=== PATIENT | male | born 1980 | race African-American/Black ===

== ENCOUNTER 2018-04-16 00:40 | Emergency (ER) | payer SELFPAY ==
[2018-04-16] VITALS (19 sets, daily range): BP systolic 91–148; BP diastolic 55–105; PULSE 79–135; RESP 11–27; TEMP 37.3; O2SAT 97–100; BMI 22.9
[2018-04-16 01:35] LABS: Add Manual Diff / Slide Review NO; Basophils Percent Auto 0.4 % (0-2); Eosinophils Percent Auto 1.1 % (2-4); Hematocrit 53.5 % (41-53); Hemoglobin 18.3 g/dL (13.5-17.5); Lymphocytes Percent Auto 16.4 % (25-40); Mean Corpuscular HGB Conc 34.2 % (30-36); Mean Corpuscular Hemoglobin 26.8 PG (26-34); Mean Corpuscular Volume 78.6 fL (80-100); Monocytes Percent Auto 6.6 % (3-14); Neutrophils Absolute Auto 11900 /uL (3000-5900); Neutrophils Percent Auto 75.5 % (50-75); Platelet Count 125 X10^3/uL (150-400); Red Cell Distribution Width 15.1 % (11.6-14.8); White Blood Cell Count 15.7 X10^3/uL (4.5-11.0)
[2018-04-16 01:36] LABS: Lactate (Lactic Acid) 0.9 mmol/L (0.7-2.1)
[2018-04-16] MEDS: SODIUM CHLORIDE 0.9% 1,000 ML 1000 ML IV (01:36)
--- NOTE | 2018-04-16 01:36 | ED.SKABFB ---
HPI - Skin/Abscess/Foreign Bdy General Chief complaint: Skin/Abscess/Foreign Body Stated complaint: swelling, pain inside buttocks Time Seen by Provider: 04/16/18 00:47 Source: patient and family Mode of arrival: ambulatory Limitations: no limitations History of Present Illness HPI narrative: Patient presents to the emergency department this evening with a significant other in the chief complaint of a painful abscess on his left buttock. He states it started few weeks ago and had spontaneously drained, he went to [facility] and had an IV with labs and a CT scan proving was not a perirectal abscess. He complains of pain upon sitting but denies any pain with bowel movements. He has had no fever or chills nor nausea or vomiting MD complaint: abscess/boil Onset (ago): week(s) Tetanus up to date: yes Location: buttocks Severity: moderate Quality: burning and aching Related Data Previous Rx's Medication Instructions Recorded hydrocodone-acetaminophen 1 tab PO Q4-6H PRN #14 tab 04/16/18 sulfamethoxazole-trimethoprim 1 tab PO BID 10 Days #20 tab 04/16/18 [Bactrim DS] Allergies Allergy/AdvReac Type Severity Reaction Status Date / Time Penicillins [PENICILLINS] Allergy Unknown Unverified 12/06/17 12:33 Review of Systems Review of Systems All systems reviewed & are unremarkable except as noted in HPI and below Constitutional Denies chills, Denies fever(s), Denies lethargy and Denies weakness Eyes Denies change in vision, Denies eye discharge, Denies irritation and Denies loss of vision ENT Ears, Nose, Mouth, and Throat: Denies change in voice, Denies neck pain and Denies sore throat Cardiovascular Denies chest pain, Denies irregular heart rhythm, Denies lightheadedness, Denies palpitations, Denies dyspnea, Denies dyspnea on exertion and Denies orthopnea Respiratory Denies cough, Denies dyspnea, Denies dyspnea on exertion and Denies wheezing Gastrointestinal Gastrointestinal: Denies abdominal pain, Denies change in bowel habits, Denies diarrhea, Denies nausea and Denies vomiting Genitourinary Denies hematuria, Denies flank pain, Denies urinary incontinence and Denies urinary urgency Musculoskeletal Denies neck pain Integumentary/Breasts Denies pruritus, Reports erythema, Denies rash, Reports skin pain and Reports skin swelling Neurologic Denies confusion, Denies loss of vision and Denies weakness Psychiatric Denies anxiety, Denies confusion, Denies depression, Denies homicidal ideation and Denies suicidal ideation Endocrine Denies palpitations Hematologic/Lymphatic Denies easy bruising Allergic/Immunologic Denies wheezing [facility], [facility] Social History Smoking Status: Current every day smoker Exam Initial Vital Signs Initial Vital Signs: Vital Signs Temperature 99.2 F 04/16/18 01:01 Pulse Rate 110 H 04/16/18 01:01 Respiratory Rate 16 04/16/18 01:01 Blood Pressure 120/75 04/16/18 01:01 Pulse Oximetry 97 04/16/18 01:01 Const General: cooperative and well developed Nutritional Appearance: well nourished Orientation: alert, awake, oriented x3 and not confused HENMT Head: normocephalic and atraumatic Ears: external ears normal and TM's normal bilaterally Nose: external nose normal and No nasal discharge Face and sinus: sinuses nontender, face symmetric, no sinus tenderness and No dry mucous membranes Mouth: oral mucosae normal and moist mucous membranes Teeth and gingiva: dentition normal Throat: tonsils normal and uvula midline Eyes General: appearance normal, both eyes and all related structures Eyelids: eyelids normal Conjunctivae: conjunctivae normal Sclera: sclerae normal Pupils: PERRL EOM: EOM intact bilaterally Neck Neck: normal visual inspection, trachea midline, No lymphadenopathy, No midline deformity and No JVD Lymphatic: No lymphedema Chest Chest: normal inspection of the chest Resp Effort & Inspection: normal respiratory effort, able to speak in complete sentences, no respiratory distress and no use of accessory muscles Auscultation: clear to auscultation bilaterally, no rales, no rhonchi and no wheezes Cardio Rate: regular rate Rhythm: regular rhythm Heart Sounds: no click, no gallops, no murmurs and no rubs Pulses: normal peripheral pulses GI Inspection: non-distended Palpation: soft, no hepatosplenomegaly, No guarding, No pulsatile mass and No tender Auscultation: normal bowel sounds Back/Spine/Pelvis Back: No CVA tenderness Cervical Spine: cervical ROM normal and No pain with cervical ROM Thoracic/Lumbar Spine: thoracic and lumbar spine normal to inspection Skin General: no rashes or lesions noted, fluctuance (3cm fluctuance L buttock. No perirectal), No jaundice, No petechiae and warm Neuro General: alert, oriented x3, gait normal and no focal motor deficits Speech: speech normal Extrem General: full ROM, no clubbing, cyanosis or edema, no pedal edema and no calf tenderness Psych Appearance: well kempt Mental Status: mental status grossly normal Attitude: cooperative Thought Content: normal and suicidality Judgment: judgment good Procedures Abscess I/D Site: other (buttock) Side (if applicable): left Technique: incised with #11 blade Amount of fluid expressed (mL): 15 Irrigation: No Packing used?: iodoform Procedural Sedation Patient Age: Patient is 5yrs or older Indication: incision and drainage of abscess ASA Class: I Mallampati Airway Classification: Class I Preparation: laboratory monitor applied, capnometry used, supplemental O2 applied, suction/airway equipment at bedside and IV secured Ketamine: IV Ketamine dose (mg): 105 ED Sedation Level: Moderate (Concious) Patient Tolerated Procedure: Well Complications: none Course Orders Ordered: ED Orders 04/16/18 01:15 Basic Metabolic Panel Stat Blood Culture Stat Complete Blood Count AUTO DIFF Stat Lactate (Lactic Acid) Stat Procalcitonin Stat 04/16/18 02:00 Wound Culture and Gram Stain Stat Discontinued Medications Hydrocodone Bitart/Acetaminophen (Vicodin Prepack) 1 bottle MISC SEEINSTR ONE Stop: 04/16/18 02:21 Last Admin: 04/16/18 02:35 Dose: 1 bottle Sodium Chloride (Normal Saline 0.9%) 1,000 mls @ 1,000 mls/hr IV BOLUS ONE Stop: 04/16/18 02:23 Last Admin: 04/16/18 01:36 Dose: 1,000 mls/hr Ketamine HCl (Ketalar) 105 mg IV NOW ONE Stop: 04/16/18 02:16 Last Admin: 04/16/18 02:03 Dose: 105 mg Trimethoprim/Sulfamethoxazole (Bactrim Ds Prepack) 1 bottle MISC SEEINSTR ONE Stop: 04/16/18 02:21 Last Admin: 04/16/18 02:35 Dose: 1 bottle Vital Signs - 8 hr 04/16/18 01:01 04/16/18 01:44 04/16/18 01:55 Temperature 99.2 F Pulse Rate 110 H 79 79 Respiratory Rate 16 14 11 L Blood Pressure 120/75 Blood Pressure [Right Arm] 105/75 91/55 L Pulse Oximetry 97 98 100 04/16/18 01:57 04/16/18 02:00 04/16/18 02:02 Temperature Pulse Rate 85 89 100 H Respiratory Rate 15 16 20 Blood Pressure Blood Pressure [Right Arm] 110/66 108/87 H Pulse Oximetry 99 99 98 04/16/18 02:04 04/16/18 02:06 04/16/18 02:08 Temperature Pulse Rate 109 H 121 H 128 H Respiratory Rate 27 H 20 26 H Blood Pressure Blood Pressure [Right Arm] 146/80 H 128/84 H 145/80 H Pulse Oximetry 98 97 97 04/16/18 02:10 04/16/18 02:12 04/16/18 02:14 Temperature Pulse Rate 135 H 135 H 99 H Respiratory Rate 24 24 23 Blood Pressure Blood Pressure [Right Arm] 145/94 H 139/105 H 148/105 H Pulse Oximetry 99 98 98 04/16/18 02:16 04/16/18 02:20 04/16/18 02:25 Temperature Pulse Rate 99 H 91 H 89 Respiratory Rate 18 13 15 Blood Pressure Blood Pressure [Right Arm] 132/97 H 130/92 H 129/86 H Pulse Oximetry 100 98 98 04/16/18 02:30 04/16/18 02:35 04/16/18 02:44 Temperature Pulse Rate 89 85 81 Respiratory Rate 13 16 14 Blood Pressure Blood Pressure [Right Arm] 126/82 H Pulse Oximetry 97 98 04/16/18 02:50 Temperature Pulse Rate 82 Respiratory Rate 18 Blood Pressure Blood Pressure [Right Arm] 111/72 Pulse Oximetry 98 MDM - Skin/Abscess/Foreign Bdy Lab Data Result diagrams: 04/16/18 01:15 04/16/18 01:15 Lab Results 04/16/18 04/16/18 04/16/18 Range/Units 01:15 01:15 01:15 WBC 15.7 H (4.5-11.0) X10^3/uL RBC 6.80 H (4.5-5.9) X10^6/uL Hgb 18.3 H (13.5-17.5) g/dL Hct 53.5 H (41-53) % MCV 78.6 L (80-100) fL MCH 26.8 (26-34) PG MCHC 34.2 (30-36) % RDW 15.1 H (11.6-14.8) % Plt Count 125 L (150-400) X10^3/uL Neut % (Auto) 75.5 H (50-75) % Lymph % (Auto) 16.4 L (25-40) % [place] % (Auto) 6.6 (3-14) % Eos % (Auto) 1.1 L (2-4) % Baso % (Auto) 0.4 (0-2) % Neut # (Auto) 63688 H (8543-0506) /uL Sodium (137-145) mmol/L Potassium (3.4-5.1) mmol/L Chloride (98-107) mmol/L Carbon Dioxide (22-32) mmol/L BUN (9-20) mg/dL Creatinine (0.66-1.25) mg/dL Estimated GFR (>60) mL/min BUN/Creatinine Ratio (6-22) Glucose (70-100) mg/dL Lactate 0.9 (0.7-2.1) mmol/L Calcium (8.4-10.2) mg/dL Procalcitonin < 0.05 (<0.5) ng/mL 04/16/18 Range/Units 01:15 WBC (4.5-11.0) X10^3/uL RBC (4.5-5.9) X10^6/uL Hgb (13.5-17.5) g/dL Hct (41-53) % MCV (80-100) fL MCH (26-34) PG MCHC (30-36) % RDW (11.6-14.8) % Plt Count (150-400) X10^3/uL Neut % (Auto) (50-75) % Lymph % (Auto) (25-40) % [place] % (Auto) (3-14) % Eos % (Auto) (2-4) % Baso % (Auto) (0-2) % Neut # (Auto) (8753-2325) /uL Sodium 141 (137-145) mmol/L Potassium 4.6 (3.4-5.1) mmol/L Chloride 101 (98-107) mmol/L Carbon Dioxide 30 (22-32) mmol/L BUN 15 (9-20) mg/dL Creatinine 1.00 (0.66-1.25) mg/dL Estimated GFR > 60.0 (>60) mL/min BUN/Creatinine Ratio 15.0 (6-22) Glucose 102 H (70-100) mg/dL Lactate (0.7-2.1) mmol/L Calcium 9.9 (8.4-10.2) mg/dL Procalcitonin (<0.5) ng/mL Discharge Plan Departure Patient Disposition: Home Clinical Impression: Abscess of skin or subcutaneous tissue Instructions: Incision and Drainage of a Skin Abscess Activity Restrictions/Additional Instructions: *You have been diagnosed with [ cutaneous abscess ] *What to do: *Take medications as directed *Follow up with your primary care provider in 2-3 days, call for an appointment. Let them know you were seen in the Emergency Department and that we ask that you be seen in follow up *Return to ER if you should have any new, worsening or concerning symptoms, such as [increasing pain, difficulty with bowel movement, fever over 101F, or other bothersome symptoms] Prescriptions: New hydrocodone-acetaminophen 5-325 mg tablet 1 tab PO Q4-6H PRN (Reason: pain) Qty: 14 RF: 0 sulfamethoxazole-trimethoprim [Bactrim DS] 800-160 mg tablet 1 tab PO BID 10 Days Qty: 20 RF: 0 Referrals: Matthew Thomas MD [Physician] -
[2018-04-16 01:48] LABS: Blood Urea Nitrogen 15 mg/dL (9-20); Calcium 9.9 mg/dL (8.4-10.2); Carbon Dioxide 30 mmol/L (22-32); Chloride 101 mmol/L (98-107); Estimated Glomerular Filt Rate > 60.0 mL/min (>60); Glucose 102 mg/dL (70-100); Potassium 4.6 mmol/L (3.4-5.1); Sodium 141 mmol/L (137-145)
[2018-04-16 01:51] LABS: HEMOLYSIS 67 (0-50)
[2018-04-16 01:57] LABS: Procalcitonin < 0.05 ng/mL (<0.5)
[2018-04-16] MEDS: KETAMINE 500 MG/5 ML INJ 105 MG IV (02:03)
[2018-04-16] MEDS: SULFA/TRIMETH 800/160 PREPACK 1 BOTTLE MISC (02:35)
[2018-04-16] MEDS: HYDROCODONE/ACET 5/325 PREPACK 1 BOTTLE MISC (02:35)
== END 2018-04-16 03:21 | disposition home or self-care (01) ==
PROVIDERS: Emergency Provider Emergency Medicine
DX: L02.31 Cutaneous abscess of buttock (principal)
CPT/HCPCS: 10060; 36591; 80048; 83605; 84145; 85025; 87040; 87070; 87075; 87077; 87147; 87186; 87205; 94770; 96360; 96361; 99152; 99285; 99291

== ENCOUNTER 2018-05-03 10:19 | Observation (INO) | payer SELFPAY ==
[2018-05-03] VITALS (13 sets, daily range): BP systolic 84–152; BP diastolic 46–106; PULSE 56–93; RESP 16–28; TEMP 36.2–37.3; O2SAT 95–100; BMI 20.7
--- NOTE | 2018-05-03 11:31 | PC.NURSE ---
Lump in area where pt had to have surgical I&D done. Reports is extremely painful
--- NOTE | 2018-05-03 12:03 | ED.WOUNDLAC ---
HPI - Wound/Laceration <LATIA Oshea - Last Filed: 05/03/18 20:44> General Chief Complaint: Wound/Laceration Stated Complaint: LUMP ON BUTT Time Seen by Provider: 05/03/18 11:47 Source: patient Mode of arrival: ambulatory Limitations: no limitations History of Present Illness HPI narrative: 37-year-old male with history of having abscess to his left buttocks over the past couple weeks and is a daily smoker here for complaint of return of abscess to the left buttocks area. He had incision and drainage completed 2 weeks ago and was placed on Septra. He was seen by surgery. He reports over the last 3-4 days he has had a repeat return of swelling and pain into that area. He denies any drainage from the area. No fevers no chills. He has completed his antibiotics. He denies any trauma to the area. No other concerns or complaints at this time. Related Data Home Medications Medication Instructions Recorded Confirmed ibuprofen 1 dose PO PRN PRN 05/03/18 05/03/18 Previous Rx's Medication Instructions Recorded ciprofloxacin HCl 750 mg PO BID #14 tab 05/04/18 metronidazole [Flagyl] 250 mg PO TID #21 tab 05/04/18 oxycodone-acetaminophen 1 tab PO Q4HR PRN #30 tab 05/04/18 Allergies Allergy/AdvReac Type Severity Reaction Status Date / Time Penicillins [PENICILLINS] Allergy Unknown Verified 05/03/18 10:23 Review of Systems <LATIA Oshea - Last Filed: 05/03/18 20:44> Constitutional Denies chills, Denies fever(s), Denies lethargy and Denies weakness Eyes Denies change in vision, Denies eye discharge, Denies irritation and Denies loss of vision ENT Ears, Nose, Mouth, and Throat: Denies change in voice, Denies neck pain and Denies sore throat Cardiovascular Denies chest pain, Denies irregular heart rhythm, Denies lightheadedness, Denies palpitations, Denies dyspnea, Denies dyspnea on exertion and Denies orthopnea Respiratory Denies cough, Denies dyspnea, Denies dyspnea on exertion and Denies wheezing Gastrointestinal Gastrointestinal: Denies abdominal pain, Denies change in bowel habits, Denies diarrhea, Denies nausea and Denies vomiting Genitourinary Denies hematuria, Denies flank pain, Denies urinary incontinence and Denies urinary urgency Musculoskeletal Denies neck pain Integumentary/Breasts Comments: Abscess to left buttocks Neurologic Denies confusion, Denies loss of vision and Denies weakness Psychiatric Denies anxiety, Denies confusion, Denies depression, Denies homicidal ideation and Denies suicidal ideation Endocrine Denies palpitations Allergic/Immunologic Denies wheezing Exam <LATIA Oshea - Last Filed: 05/03/18 20:44> Initial Vital Signs Initial Vital Signs: Vital Signs Temperature 98.2 F 05/03/18 10:23 Pulse Rate 93 H 05/03/18 10:23 Respiratory Rate 18 05/03/18 10:23 Blood Pressure 152/106 H 05/03/18 10:23 Pulse Oximetry 95 05/03/18 10:23 Const General: cooperative and well developed Nutritional Appearance: well nourished Orientation: alert, awake, oriented x3 and not confused HENMT Mouth: oral mucosae normal and moist mucous membranes Eyes Conjunctivae: conjunctivae normal Sclera: sclerae normal Pupils: PERRL EOM: EOM intact bilaterally Resp Effort & Inspection: normal respiratory effort, able to speak in complete sentences, no respiratory distress and no use of accessory muscles Auscultation: clear to auscultation bilaterally, no rales, no rhonchi and no wheezes Cardio Rate: regular rate Rhythm: regular rhythm Heart Sounds: no click, no gallops, no murmurs and no rubs Skin Other: Tenderness and swelling with induration to the of left medial buttocks distal CMS is intact <Rosa Grey DO - Last Filed: 05/08/18 07:26> Initial Vital Signs Initial Vital Signs: Vital Signs Temperature 98.2 F 05/03/18 10:23 Pulse Rate 93 H 05/03/18 10:23 Respiratory Rate 18 05/03/18 10:23 Blood Pressure 152/106 H 05/03/18 10:23 Pulse Oximetry 95 05/03/18 10:23 Course <LATIA Oshea - Last Filed: 05/03/18 20:44> Orders Ordered: Discontinued Medications Acetaminophen (Tylenol) 650 mg PO Q6HR PRN PRN Reason: Pain, Mild (1-3) Bupivacaine HCl/Epinephrine Bitart (Sensorcaine 0.5% W/ Epi (Pf)) 30 ml INJ NOW ONE Stop: 05/03/18 23:34 Last Admin: 05/03/18 23:34 Dose: 20 ml Diphenhydramine HCl (Benadryl) 25 mg IV Q6HR PRN PRN Reason: Itching Docusate Sodium (Colace) 100 mg PO BID PRN PRN Reason: Constipation Fentanyl (Sublimaze) 25 mcg IV Q5MIN PRN PRN Reason: Pain, Mild (1-3) Stop: 05/04/18 00:06 Fentanyl (Sublimaze) 50 mcg IV Q5MIN PRN PRN Reason: Pain, Moderate (4-6) Fentanyl (Sublimaze) 100 mcg IV Q5MIN PRN PRN Reason: Pain, Severe (7-10) Hydromorphone HCl (Dilaudid) 0.5 mg IV NOW ONE Stop: 05/03/18 13:15 Last Admin: 05/03/18 13:21 Dose: 0.5 mg Hydromorphone HCl (Dilaudid) 1 mg IV Q4HR PRN PRN Reason: Pain, Moderate (4-6) Last Admin: 05/03/18 15:05 Dose: 1 mg Hydromorphone HCl (Dilaudid) 1 mg IV Q2HR PRN PRN Reason: Pain, Moderate (4-6) Last Admin: 05/04/18 07:40 Dose: 1 mg Vancomycin HCl/Dextrose (Vancomycin) 1,000 mg in 200 mls @ 200 mls/hr IV NOW ONE Stop: 05/03/18 14:19 Last Infusion: 05/03/18 15:29 Dose: 0 mls/hr Admin: 05/03/18 14:29 Dose: 200 mls/hr Sodium Chloride (Normal Saline 0.9%) 1,000 mls @ 125 mls/hr IV CONT ISIAH Last Infusion: 05/03/18 15:49 Dose: 0 mls/hr Admin: 05/03/18 14:22 Dose: 125 mls/hr Vancomycin HCl 1,250 mg/ (Sodium Chloride) 250 mls @ 250 mls/hr IV Q8H ISIAH Last Admin: 05/04/18 00:52 Dose: Lactated Ringer's (Lactated Ringers) 1,000 mls @ 42 mls/hr IV CONT ISIAH Last Infusion: 05/03/18 23:55 Dose: 0 mls/hr Admin: 05/03/18 23:31 Dose: 42 mls/hr Infusion: 05/03/18 23:31 Dose: 42 mls/hr Admin: 05/03/18 20:30 Dose: 42 mls/hr Dextrose/Sodium Chloride (Dextrose 5%-0.45% Ns) 1,000 mls @ 125 mls/hr IV CONT [facility] Last Admin: 05/04/18 11:32 Dose: 125 mls/hr Infusion: 05/04/18 08:00 Dose: 125 mls/hr Admin: 05/04/18 00:00 Dose: 125 mls/hr Ciprofloxacin (Cipro) 400 mg in 200 mls @ 200 mls/hr IV Q12H [facility] Last Infusion: 05/04/18 06:59 Dose: 0 mls/hr Admin: 05/04/18 01:51 Dose: 200 mls/hr Metronidazole (Flagyl) 500 mg in 100 mls @ 100 mls/hr IV Q6H [facility] Last Admin: 05/04/18 18:46 Dose: Infusion: 05/04/18 15:56 Dose: 0 mls/hr Admin: 05/04/18 12:14 Dose: 100 mls/hr Infusion: 05/04/18 12:14 Dose: 0 mls/hr Infusion: 05/04/18 06:59 Dose: 0 mls/hr Admin: 05/04/18 06:11 Dose: 100 mls/hr Infusion: 05/04/18 01:49 Dose: 0 mls/hr Admin: 05/04/18 00:39 Dose: 100 mls/hr Ciprofloxacin (Cipro) 400 mg in 200 mls @ 200 mls/hr IV 0200,1400 [facility] Last Infusion: 05/04/18 15:57 Dose: 0 mls/hr Admin: 05/04/18 14:19 Dose: 200 mls/hr Ibuprofen (Advil) 400 mg PO NOW ONE Stop: 05/03/18 12:31 Last Admin: 05/03/18 12:38 Dose: 400 mg Ibuprofen (Advil) 600 mg PO Q6HR PRN PRN Reason: Pain, Mild (1-3) Ibuprofen (Advil) 600 mg PO Q6HR PRN PRN Reason: Pain, Mild (1-3) Last Admin: 05/04/18 15:54 Dose: 600 mg Admin: 05/04/18 09:07 Dose: 600 mg Meperidine HCl (Demerol) 25 mg IV Q5MIN PRN PRN Reason: Pain or shivering Metoclopramide HCl (Reglan) 10 mg IV NOW PRN PRN Reason: Nausea And Vomiting Naloxone HCl (Narcan) 0.2 mg IV Q2MIN PRN PRN Reason: Opiate Reversal Nicotine (Nicoderm) 21 mg TOP NOW ONE Stop: 05/04/18 07:47 Last Admin: 05/04/18 07:55 Dose: 21 mg Ondansetron HCl (Zofran) 4 mg IV Q4HR PRN PRN Reason: Nausea And Vomiting Ondansetron HCl (Zofran) 4 mg IV NOW PRN PRN Reason: Nausea And Vomiting Ondansetron HCl (Zofran) 4 mg IV Q4HR PRN PRN Reason: Nausea And Vomiting Oxycodone/Acetaminophen (Percocet 5/325) 1 tab PO Q4HR PRN PRN Reason: Pain, Moderate (4-6) Last Admin: 05/04/18 15:54 Dose: 1 tab Admin: 05/04/18 11:37 Dose: 1 tab Admin: 05/04/18 07:29 Dose: 1 tab Vancomycin HCl (Vancomycin Trough) 1 [place] [facility] [place] [facility] Stop: 05/04/18 19:31 Vital Signs - 8 hr 05/03/18 15:31 05/03/18 16:30 Temperature 97.1 F L Pulse Rate 56 L 58 L Respiratory Rate 16 17 Blood Pressure 135/96 H Blood Pressure [Left Arm] 133/79 Pulse Oximetry 96 100 <Rosa Grey DO - Last Filed: 05/08/18 07:26> Orders Ordered: Discontinued Medications Acetaminophen (Tylenol) 650 mg PO Q6HR PRN PRN Reason: Pain, Mild (1-3) Bupivacaine HCl/Epinephrine Bitart (Sensorcaine 0.5% W/ Epi (Pf)) 30 ml INJ NOW ONE Stop: 05/03/18 23:34 Last Admin: 05/03/18 23:34 Dose: 20 ml Diphenhydramine HCl (Benadryl) 25 mg IV Q6HR PRN PRN Reason: Itching Docusate Sodium (Colace) 100 mg PO BID PRN PRN Reason: Constipation Fentanyl (Sublimaze) 25 mcg IV Q5MIN PRN PRN Reason: Pain, Mild (1-3) Stop: 05/04/18 00:06 Fentanyl (Sublimaze) 50 mcg IV Q5MIN PRN PRN Reason: Pain, Moderate (4-6) Fentanyl (Sublimaze) 100 mcg IV Q5MIN PRN PRN Reason: Pain, Severe (7-10) Hydromorphone HCl (Dilaudid) 0.5 mg IV NOW ONE Stop: 05/03/18 13:15 Last Admin: 05/03/18 13:21 Dose: 0.5 mg Hydromorphone HCl (Dilaudid) 1 mg IV Q4HR PRN PRN Reason: Pain, Moderate (4-6) Last Admin: 05/03/18 15:05 Dose: 1 mg Hydromorphone HCl (Dilaudid) 1 mg IV Q2HR PRN PRN Reason: Pain, Moderate (4-6) Last Admin: 05/04/18 07:40 Dose: 1 mg Vancomycin HCl/Dextrose (Vancomycin) 1,000 mg in 200 mls @ 200 mls/hr IV NOW ONE Stop: 05/03/18 14:19 Last Infusion: 05/03/18 15:29 Dose: 0 mls/hr Admin: 05/03/18 14:29 Dose: 200 mls/hr Sodium Chloride (Normal Saline 0.9%) 1,000 mls @ 125 mls/hr IV CONT ISIA[facility] Last Infusion: 05/03/18 15:49 Dose: 0 mls/hr Admin: 05/03/18 14:22 Dose: 125 mls/hr Vancomycin HCl 1,250 mg/ (Sodium Chloride) 250 mls @ 250 mls/hr IV Q8H [facility] Last Admin: 05/04/18 00:52 Dose: Lactated Ringer's (Lactated Ringers) 1,000 mls @ 42 mls/hr IV CONT [facility] Last Infusion: 05/03/18 23:55 Dose: 0 mls/hr Admin: 05/03/18 23:31 Dose: 42 mls/hr Infusion: 05/03/18 23:31 Dose: 42 mls/hr Admin: 05/03/18 20:30 Dose: 42 mls/hr Dextrose/Sodium Chloride (Dextrose 5%-0.45% Ns) 1,000 mls @ 125 mls/hr IV CONT [facility] Last Admin: 05/04/18 11:32 Dose: 125 mls/hr Infusion: 05/04/18 08:00 Dose: 125 mls/hr Admin: 05/04/18 00:00 Dose: 125 mls/hr Ciprofloxacin (Cipro) 400 mg in 200 mls @ 200 mls/hr IV Q12H [facility] Last Infusion: 05/04/18 06:59 Dose: 0 mls/hr Admin: 05/04/18 01:51 Dose: 200 mls/hr Metronidazole (Flagyl) 500 mg in 100 mls @ 100 mls/hr IV Q6H [facility] Last Admin: 05/04/18 18:46 Dose: Infusion: 05/04/18 15:56 Dose: 0 mls/hr Admin: 05/04/18 12:14 Dose: 100 mls/hr Infusion: 05/04/18 12:14 Dose: 0 mls/hr Infusion: 05/04/18 06:59 Dose: 0 mls/hr Admin: 05/04/18 06:11 Dose: 100 mls/hr Infusion: 05/04/18 01:49 Dose: 0 mls/hr Admin: 05/04/18 00:39 Dose: 100 mls/hr Ciprofloxacin (Cipro) 400 mg in 200 mls @ 200 mls/hr IV 0200,1400 [facility] Last Infusion: 05/04/18 15:57 Dose: 0 mls/hr Admin: 05/04/18 14:19 Dose: 200 mls/hr Ibuprofen (Advil) 400 mg PO NOW ONE Stop: 05/03/18 12:31 Last Admin: 05/03/18 12:38 Dose: 400 mg Ibuprofen (Advil) 600 mg PO Q6HR PRN PRN Reason: Pain, Mild (1-3) Ibuprofen (Advil) 600 mg PO Q6HR PRN PRN Reason: Pain, Mild (1-3) Last Admin: 05/04/18 15:54 Dose: 600 mg Admin: 05/04/18 09:07 Dose: 600 mg Meperidine HCl (Demerol) 25 mg IV Q5MIN PRN PRN Reason: Pain or shivering Metoclopramide HCl (Reglan) 10 mg IV NOW PRN PRN Reason: Nausea And Vomiting Naloxone HCl (Narcan) 0.2 mg IV Q2MIN PRN PRN Reason: Opiate Reversal Nicotine (Nicoderm) 21 mg TOP NOW ONE Stop: 05/04/18 07:47 Last Admin: 05/04/18 07:55 Dose: 21 mg Ondansetron HCl (Zofran) 4 mg IV Q4HR PRN PRN Reason: Nausea And Vomiting Ondansetron HCl (Zofran) 4 mg IV NOW PRN PRN Reason: Nausea And Vomiting Ondansetron HCl (Zofran) 4 mg IV Q4HR PRN PRN Reason: Nausea And Vomiting Oxycodone/Acetaminophen (Percocet 5/325) 1 tab PO Q4HR PRN PRN Reason: Pain, Moderate (4-6) Last Admin: 05/04/18 15:54 Dose: 1 tab Admin: 05/04/18 11:37 Dose: 1 tab Admin: 05/04/18 07:29 Dose: 1 tab Vancomycin HCl (Vancomycin Trough) 1 [place] [facility] [place] [facility] Stop: 05/04/18 19:31 Vital Signs - 8 hr 05/03/18 15:31 05/03/18 16:30 Temperature 97.1 F L Pulse Rate 56 L 58 L Respiratory Rate 16 17 Blood Pressure 135/96 H Blood Pressure [Left Arm] 133/79 Pulse Oximetry 96 100 MDM - Wound/Laceration <LATIA Oshea - Last Filed: 05/03/18 20:44> Lab Data Result diagrams: 05/03/18 13:05 05/03/18 13:05 Lab Results 05/03/18 05/03/18 Range/Units 13:05 13:05 WBC 13.4 H (4.5-11.0) X10^3/uL RBC 6.64 H (4.5-5.9) X10^6/uL Hgb 17.9 H (13.5-17.5) g/dL Hct 51.3 (41-53) % MCV 77.4 L (80-100) fL MCH 27.0 (26-34) PG MCHC 34.9 (30-36) % RDW 15.2 H (11.6-14.8) % Plt Count 184 (150-400) X10^3/uL Neut % (Auto) 82.4 H (50-75) % Lymph % (Auto) 11.4 L (25-40) % [place] % (Auto) 5.1 (3-14) % Eos % (Auto) 0.4 L (2-4) % Baso % (Auto) 0.7 (0-2) % Neut # (Auto) 94677 H (2040-6387) /uL Sodium 142 (137-145) mmol/L Potassium 4.5 (3.4-5.1) mmol/L Chloride 107 (98-107) mmol/L Carbon Dioxide 25 (22-32) mmol/L BUN 13 (9-20) mg/dL Creatinine 0.90 (0.66-1.25) mg/dL Estimated GFR > 60.0 (>60) mL/min BUN/Creatinine Ratio 14.4 (6-22) Glucose 96 (70-100) mg/dL Calcium 9.5 (8.4-10.2) mg/dL Total Bilirubin 1.0 (0.2-1.3) mg/dL AST 28 (17-59) IU/L ALT 34 (21-72) IU/L Alkaline Phosphatase 68 (38-126) U/L Total Protein 7.6 (6.3-8.2) g/dL Albumin 4.2 (3.5-5.0) g/dL Globulin 3.4 (1.7-4.1) g/dL Albumin/Globulin Ratio 1.2 (1.0-2.8) MDM Narrative Medical decision making narrative: Patient with elevated white count today of 13 K. due to abscess not resolving and patient completing p.o. antibiotics discussed case with surgery Dr. Johnson. She recommended placing the patient on vancomycin IV. He is admitted to the [facility] with plan on going to surgery this evening to surgically remove abscess. He is placed on NPO. <Rosa Grey, DO - Last Filed: 05/08/18 07:26> Lab Data Lab Results 05/03/18 05/03/18 Range/Units 13:05 13:05 WBC 13.4 H (4.5-11.0) X10^3/uL RBC 6.64 H (4.5-5.9) X10^6/uL Hgb 17.9 H (13.5-17.5) g/dL Hct 51.3 (41-53) % MCV 77.4 L (80-100) fL MCH 27.0 (26-34) PG MCHC 34.9 (30-36) % RDW 15.2 H (11.6-14.8) % Plt Count 184 (150-400) X10^3/uL Neut % (Auto) 82.4 H (50-75) % Lymph % (Auto) 11.4 L (25-40) % [place] % (Auto) 5.1 (3-14) % Eos % (Auto) 0.4 L (2-4) % Baso % (Auto) 0.7 (0-2) % Neut # (Auto) 63423 H (1344-6432) /uL Sodium 142 (137-145) mmol/L Potassium 4.5 (3.4-5.1) mmol/L Chloride 107 (98-107) mmol/L Carbon Dioxide 25 (22-32) mmol/L BUN 13 (9-20) mg/dL Creatinine 0.90 (0.66-1.25) mg/dL Estimated GFR > 60.0 (>60) mL/min BUN/Creatinine Ratio 14.4 (6-22) Glucose 96 (70-100) mg/dL Calcium 9.5 (8.4-10.2) mg/dL Total Bilirubin 1.0 (0.2-1.3) mg/dL AST 28 (17-59) IU/L ALT 34 (21-72) IU/L Alkaline Phosphatase 68 (38-126) U/L Total Protein 7.6 (6.3-8.2) g/dL Albumin 4.2 (3.5-5.0) g/dL Globulin 3.4 (1.7-4.1) g/dL Albumin/Globulin Ratio 1.2 (1.0-2.8) Discharge Plan Departure Patient Disposition: Admitted As Inpatient Clinical Impression: Abscess of buttock, left Discharge Date/Time: 05/03/18 16:05 Interventions: ED Discharge Assessment Last Done: 05/03/18 15:48 Instructions: Anal Abscess, Oxycodone, Ciprofloxacin, Metronidazole Oral Admit Date/Time: 05/03/18 15:55 Admit Provider: Kaylin Johnson <Rosa Grey DO - Last Filed: 05/08/18 07:26> Cosign ED Attending Cosignature Attestation: I was immediately available in the department for consultation. Documentation has been reviewed. I agree with assessment and plan.
--- NOTE | 2018-05-03 12:06 | ED_ITS ---
HPI - Wound/Laceration <LATIA Oshea - Last Filed: 05/03/18 20:44> General Chief Complaint: Wound/Laceration Stated Complaint: LUMP ON BUTT Time Seen by Provider: 05/03/18 11:47 Source: patient Mode of arrival: ambulatory Limitations: no limitations History of Present Illness HPI narrative: 37-year-old male with history of having abscess to his left buttocks over the past couple weeks and is a daily smoker here for complaint of return of abscess to the left buttocks area. He had incision and drainage completed 2 weeks ago and was placed on Septra. He was seen by surgery. He reports over the last 3-4 days he has had a repeat return of swelling and pain into that area. He denies any drainage from the area. No fevers no chills. He has completed his antibiotics. He denies any trauma to the area. No other concerns or complaints at this time. Related Data Home Medications Medication Instructions Recorded Confirmed ibuprofen 1 dose PO PRN PRN 05/03/18 05/03/18 Previous Rx's Medication Instructions Recorded ciprofloxacin HCl 750 mg PO BID #14 tab 05/04/18 metronidazole [Flagyl] 250 mg PO TID #21 tab 05/04/18 oxycodone-acetaminophen 1 tab PO Q4HR PRN #30 tab 05/04/18 Allergies Allergy/AdvReac Type Severity Reaction Status Date / Time Penicillins [PENICILLINS] Allergy Unknown Verified 05/03/18 10:23 Review of Systems <LATIA Oshea - Last Filed: 05/03/18 20:44> Constitutional Denies chills, Denies fever(s), Denies lethargy and Denies weakness Eyes Denies change in vision, Denies eye discharge, Denies irritation and Denies loss of vision ENT Ears, Nose, Mouth, and Throat: Denies change in voice, Denies neck pain and Denies sore throat Cardiovascular Denies chest pain, Denies irregular heart rhythm, Denies lightheadedness, Denies palpitations, Denies dyspnea, Denies dyspnea on exertion and Denies orthopnea Respiratory Denies cough, Denies dyspnea, Denies dyspnea on exertion and Denies wheezing Gastrointestinal Gastrointestinal: Denies abdominal pain, Denies change in bowel habits, Denies diarrhea, Denies nausea and Denies vomiting Genitourinary Denies hematuria, Denies flank pain, Denies urinary incontinence and Denies urinary urgency Musculoskeletal Denies neck pain Integumentary/Breasts Comments: Abscess to left buttocks Neurologic Denies confusion, Denies loss of vision and Denies weakness Psychiatric Denies anxiety, Denies confusion, Denies depression, Denies homicidal ideation and Denies suicidal ideation Endocrine Denies palpitations Allergic/Immunologic Denies wheezing Exam <LATIA Oshea - Last Filed: 05/03/18 20:44> Initial Vital Signs Initial Vital Signs: Vital Signs Temperature 98.2 F 05/03/18 10:23 Pulse Rate 93 H 05/03/18 10:23 Respiratory Rate 18 05/03/18 10:23 Blood Pressure 152/106 H 05/03/18 10:23 Pulse Oximetry 95 05/03/18 10:23 Const General: cooperative and well developed Nutritional Appearance: well nourished Orientation: alert, awake, oriented x3 and not confused HENMT Mouth: oral mucosae normal and moist mucous membranes Eyes Conjunctivae: conjunctivae normal Sclera: sclerae normal Pupils: PERRL EOM: EOM intact bilaterally Resp Effort & Inspection: normal respiratory effort, able to speak in complete sentences, no respiratory distress and no use of accessory muscles Auscultation: clear to auscultation bilaterally, no rales, no rhonchi and no wheezes Cardio Rate: regular rate Rhythm: regular rhythm Heart Sounds: no click, no gallops, no murmurs and no rubs Skin Other: Tenderness and swelling with induration to the of left medial buttocks distal CMS is intact <Rosa Grey DO - Last Filed: 05/08/18 07:26> Initial Vital Signs Initial Vital Signs: Vital Signs Temperature 98.2 F 05/03/18 10:23 Pulse Rate 93 H 05/03/18 10:23 Respiratory Rate 18 05/03/18 10:23 Blood Pressure 152/106 H 05/03/18 10:23 Pulse Oximetry 95 05/03/18 10:23 Course <LATIA Oshea - Last Filed: 05/03/18 20:44> Orders Ordered: Discontinued Medications Acetaminophen (Tylenol) 650 mg PO Q6HR PRN PRN Reason: Pain, Mild (1-3) Bupivacaine HCl/Epinephrine Bitart (Sensorcaine 0.5% W/ Epi (Pf)) 30 ml INJ NOW ONE Stop: 05/03/18 23:34 Last Admin: 05/03/18 23:34 Dose: 20 ml Diphenhydramine HCl (Benadryl) 25 mg IV Q6HR PRN PRN Reason: Itching Docusate Sodium (Colace) 100 mg PO BID PRN PRN Reason: Constipation Fentanyl (Sublimaze) 25 mcg IV Q5MIN PRN PRN Reason: Pain, Mild (1-3) Stop: 05/04/18 00:06 Fentanyl (Sublimaze) 50 mcg IV Q5MIN PRN PRN Reason: Pain, Moderate (4-6) Fentanyl (Sublimaze) 100 mcg IV Q5MIN PRN PRN Reason: Pain, Severe (7-10) Hydromorphone HCl (Dilaudid) 0.5 mg IV NOW ONE Stop: 05/03/18 13:15 Last Admin: 05/03/18 13:21 Dose: 0.5 mg Hydromorphone HCl (Dilaudid) 1 mg IV Q4HR PRN PRN Reason: Pain, Moderate (4-6) Last Admin: 05/03/18 15:05 Dose: 1 mg Hydromorphone HCl (Dilaudid) 1 mg IV Q2HR PRN PRN Reason: Pain, Moderate (4-6) Last Admin: 05/04/18 07:40 Dose: 1 mg Vancomycin HCl/Dextrose (Vancomycin) 1,000 mg in 200 mls @ 200 mls/hr IV NOW ONE Stop: 05/03/18 14:19 Last Infusion: 05/03/18 15:29 Dose: 0 mls/hr Admin: 05/03/18 14:29 Dose: 200 mls/hr Sodium Chloride (Normal Saline 0.9%) 1,000 mls @ 125 mls/hr IV CONT ISIAH Last Infusion: 05/03/18 15:49 Dose: 0 mls/hr Admin: 05/03/18 14:22 Dose: 125 mls/hr Vancomycin HCl 1,250 mg/ (Sodium Chloride) 250 mls @ 250 mls/hr IV Q8H ISIAH Last Admin: 05/04/18 00:52 Dose: Lactated Ringer's (Lactated Ringers) 1,000 mls @ 42 mls/hr IV CONT ISIAH Last Infusion: 05/03/18 23:55 Dose: 0 mls/hr Admin: 05/03/18 23:31 Dose: 42 mls/hr Infusion: 05/03/18 23:31 Dose: 42 mls/hr Admin: 05/03/18 20:30 Dose: 42 mls/hr Dextrose/Sodium Chloride (Dextrose 5%-0.45% Ns) 1,000 mls @ 125 mls/hr IV CONT [facility] Last Admin: 05/04/18 11:32 Dose: 125 mls/hr Infusion: 05/04/18 08:00 Dose: 125 mls/hr Admin: 05/04/18 00:00 Dose: 125 mls/hr Ciprofloxacin (Cipro) 400 mg in 200 mls @ 200 mls/hr IV Q12H [facility] Last Infusion: 05/04/18 06:59 Dose: 0 mls/hr Admin: 05/04/18 01:51 Dose: 200 mls/hr Metronidazole (Flagyl) 500 mg in 100 mls @ 100 mls/hr IV Q6H [facility] Last Admin: 05/04/18 18:46 Dose: Infusion: 05/04/18 15:56 Dose: 0 mls/hr Admin: 05/04/18 12:14 Dose: 100 mls/hr Infusion: 05/04/18 12:14 Dose: 0 mls/hr Infusion: 05/04/18 06:59 Dose: 0 mls/hr Admin: 05/04/18 06:11 Dose: 100 mls/hr Infusion: 05/04/18 01:49 Dose: 0 mls/hr Admin: 05/04/18 00:39 Dose: 100 mls/hr Ciprofloxacin (Cipro) 400 mg in 200 mls @ 200 mls/hr IV 0200,1400 [facility] Last Infusion: 05/04/18 15:57 Dose: 0 mls/hr Admin: 05/04/18 14:19 Dose: 200 mls/hr Ibuprofen (Advil) 400 mg PO NOW ONE Stop: 05/03/18 12:31 Last Admin: 05/03/18 12:38 Dose: 400 mg Ibuprofen (Advil) 600 mg PO Q6HR PRN PRN Reason: Pain, Mild (1-3) Ibuprofen (Advil) 600 mg PO Q6HR PRN PRN Reason: Pain, Mild (1-3) Last Admin: 05/04/18 15:54 Dose: 600 mg Admin: 05/04/18 09:07 Dose: 600 mg Meperidine HCl (Demerol) 25 mg IV Q5MIN PRN PRN Reason: Pain or shivering Metoclopramide HCl (Reglan) 10 mg IV NOW PRN PRN Reason: Nausea And Vomiting Naloxone HCl (Narcan) 0.2 mg IV Q2MIN PRN PRN Reason: Opiate Reversal Nicotine (Nicoderm) 21 mg TOP NOW ONE Stop: 05/04/18 07:47 Last Admin: 05/04/18 07:55 Dose: 21 mg Ondansetron HCl (Zofran) 4 mg IV Q4HR PRN PRN Reason: Nausea And Vomiting Ondansetron HCl (Zofran) 4 mg IV NOW PRN PRN Reason: Nausea And Vomiting Ondansetron HCl (Zofran) 4 mg IV Q4HR PRN PRN Reason: Nausea And Vomiting Oxycodone/Acetaminophen (Percocet 5/325) 1 tab PO Q4HR PRN PRN Reason: Pain, Moderate (4-6) Last Admin: 05/04/18 15:54 Dose: 1 tab Admin: 05/04/18 11:37 Dose: 1 tab Admin: 05/04/18 07:29 Dose: 1 tab Vancomycin HCl (Vancomycin Trough) 1 request [facility] [place] [facility] Stop: 05/04/18 19:31 Vital Signs - 8 hr 05/03/18 15:31 05/03/18 16:30 Temperature 97.1 F L Pulse Rate 56 L 58 L Respiratory Rate 16 17 Blood Pressure 135/96 H Blood Pressure [Left Arm] 133/79 Pulse Oximetry 96 100 <Rosa Grey DO - Last Filed: 05/08/18 07:26> Orders Ordered: Discontinued Medications Acetaminophen (Tylenol) 650 mg PO Q6HR PRN PRN Reason: Pain, Mild (1-3) Bupivacaine HCl/Epinephrine Bitart (Sensorcaine 0.5% W/ Epi (Pf)) 30 ml INJ NOW ONE Stop: 05/03/18 23:34 Last Admin: 05/03/18 23:34 Dose: 20 ml Diphenhydramine HCl (Benadryl) 25 mg IV Q6HR PRN PRN Reason: Itching Docusate Sodium (Colace) 100 mg PO BID PRN PRN Reason: Constipation Fentanyl (Sublimaze) 25 mcg IV Q5MIN PRN PRN Reason: Pain, Mild (1-3) Stop: 05/04/18 00:06 Fentanyl (Sublimaze) 50 mcg IV Q5MIN PRN PRN Reason: Pain, Moderate (4-6) Fentanyl (Sublimaze) 100 mcg IV Q5MIN PRN PRN Reason: Pain, Severe (7-10) Hydromorphone HCl (Dilaudid) 0.5 mg IV NOW ONE Stop: 05/03/18 13:15 Last Admin: 05/03/18 13:21 Dose: 0.5 mg Hydromorphone HCl (Dilaudid) 1 mg IV Q4HR PRN PRN Reason: Pain, Moderate (4-6) Last Admin: 05/03/18 15:05 Dose: 1 mg Hydromorphone HCl (Dilaudid) 1 mg IV Q2HR PRN PRN Reason: Pain, Moderate (4-6) Last Admin: 05/04/18 07:40 Dose: 1 mg Vancomycin HCl/Dextrose (Vancomycin) 1,000 mg in 200 mls @ 200 mls/hr IV NOW ONE Stop: 05/03/18 14:19 Last Infusion: 05/03/18 15:29 Dose: 0 mls/hr Admin: 05/03/18 14:29 Dose: 200 mls/hr Sodium Chloride (Normal Saline 0.9%) 1,000 mls @ 125 mls/hr IV CONT ISIAH Last Infusion: 05/03/18 15:49 Dose: 0 mls/hr Admin: 05/03/18 14:22 Dose: 125 mls/hr Vancomycin HCl 1,250 mg/ (Sodium Chloride) 250 mls @ 250 mls/hr IV Q8H ISIA[facility] Last Admin: 05/04/18 00:52 Dose: Lactated Ringer's (Lactated Ringers) 1,000 mls @ 42 mls/hr IV CONT ISIAH Last Infusion: 05/03/18 23:55 Dose: 0 mls/hr Admin: 05/03/18 23:31 Dose: 42 mls/hr Infusion: 05/03/18 23:31 Dose: 42 mls/hr Admin: 05/03/18 20:30 Dose: 42 mls/hr Dextrose/Sodium Chloride (Dextrose 5%-0.45% Ns) 1,000 mls @ 125 mls/hr IV CONT [facility] Last Admin: 05/04/18 11:32 Dose: 125 mls/hr Infusion: 05/04/18 08:00 Dose: 125 mls/hr Admin: 05/04/18 00:00 Dose: 125 mls/hr Ciprofloxacin (Cipro) 400 mg in 200 mls @ 200 mls/hr IV Q12H [facility] Last Infusion: 05/04/18 06:59 Dose: 0 mls/hr Admin: 05/04/18 01:51 Dose: 200 mls/hr Metronidazole (Flagyl) 500 mg in 100 mls @ 100 mls/hr IV Q6H [facility] Last Admin: 05/04/18 18:46 Dose: Infusion: 05/04/18 15:56 Dose: 0 mls/hr Admin: 05/04/18 12:14 Dose: 100 mls/hr Infusion: 05/04/18 12:14 Dose: 0 mls/hr Infusion: 05/04/18 06:59 Dose: 0 mls/hr Admin: 05/04/18 06:11 Dose: 100 mls/hr Infusion: 05/04/18 01:49 Dose: 0 mls/hr Admin: 05/04/18 00:39 Dose: 100 mls/hr Ciprofloxacin (Cipro) 400 mg in 200 mls @ 200 mls/hr IV 0200,1400 [facility] Last Infusion: 05/04/18 15:57 Dose: 0 mls/hr Admin: 05/04/18 14:19 Dose: 200 mls/hr Ibuprofen (Advil) 400 mg PO NOW ONE Stop: 05/03/18 12:31 Last Admin: 05/03/18 12:38 Dose: 400 mg Ibuprofen (Advil) 600 mg PO Q6HR PRN PRN Reason: Pain, Mild (1-3) Ibuprofen (Advil) 600 mg PO Q6HR PRN PRN Reason: Pain, Mild (1-3) Last Admin: 05/04/18 15:54 Dose: 600 mg Admin: 05/04/18 09:07 Dose: 600 mg Meperidine HCl (Demerol) 25 mg IV Q5MIN PRN PRN Reason: Pain or shivering Metoclopramide HCl (Reglan) 10 mg IV NOW PRN PRN Reason: Nausea And Vomiting Naloxone HCl (Narcan) 0.2 mg IV Q2MIN PRN PRN Reason: Opiate Reversal Nicotine (Nicoderm) 21 mg TOP NOW ONE Stop: 05/04/18 07:47 Last Admin: 05/04/18 07:55 Dose: 21 mg Ondansetron HCl (Zofran) 4 mg IV Q4HR PRN PRN Reason: Nausea And Vomiting Ondansetron HCl (Zofran) 4 mg IV NOW PRN PRN Reason: Nausea And Vomiting Ondansetron HCl (Zofran) 4 mg IV Q4HR PRN PRN Reason: Nausea And Vomiting Oxycodone/Acetaminophen (Percocet 5/325) 1 tab PO Q4HR PRN PRN Reason: Pain, Moderate (4-6) Last Admin: 05/04/18 15:54 Dose: 1 tab Admin: 05/04/18 11:37 Dose: 1 tab Admin: 05/04/18 07:29 Dose: 1 tab Vancomycin HCl (Vancomycin Trough) 1 request [facility] [place] [facility] Stop: 05/04/18 19:31 Vital Signs - 8 hr 05/03/18 15:31 05/03/18 16:30 Temperature 97.1 F L Pulse Rate 56 L 58 L Respiratory Rate 16 17 Blood Pressure 135/96 H Blood Pressure [Left Arm] 133/79 Pulse Oximetry 96 100 MDM - Wound/Laceration <LATIA Oshea - Last Filed: 05/03/18 20:44> Lab Data Result diagrams: 05/03/18 13:05 05/03/18 13:05 Lab Results 05/03/18 05/03/18 Range/Units 13:05 13:05 WBC 13.4 H (4.5-11.0) X10^3/uL RBC 6.64 H (4.5-5.9) X10^6/uL Hgb 17.9 H (13.5-17.5) g/dL Hct 51.3 (41-53) % MCV 77.4 L (80-100) fL MCH 27.0 (26-34) PG MCHC 34.9 (30-36) % RDW 15.2 H (11.6-14.8) % Plt Count 184 (150-400) X10^3/uL Neut % (Auto) 82.4 H (50-75) % Lymph % (Auto) 11.4 L (25-40) % Cotton % (Auto) 5.1 (3-14) % Eos % (Auto) 0.4 L (2-4) % Baso % (Auto) 0.7 (0-2) % Neut # (Auto) 38444 H (5859-5747) /uL Sodium 142 (137-145) mmol/L Potassium 4.5 (3.4-5.1) mmol/L Chloride 107 (98-107) mmol/L Carbon Dioxide 25 (22-32) mmol/L BUN 13 (9-20) mg/dL Creatinine 0.90 (0.66-1.25) mg/dL Estimated GFR > 60.0 (>60) mL/min BUN/Creatinine Ratio 14.4 (6-22) Glucose 96 (70-100) mg/dL Calcium 9.5 (8.4-10.2) mg/dL Total Bilirubin 1.0 (0.2-1.3) mg/dL AST 28 (17-59) IU/L ALT 34 (21-72) IU/L Alkaline Phosphatase 68 (38-126) U/L Total Protein 7.6 (6.3-8.2) g/dL Albumin 4.2 (3.5-5.0) g/dL Globulin 3.4 (1.7-4.1) g/dL Albumin/Globulin Ratio 1.2 (1.0-2.8) MDM Narrative Medical decision making narrative: Patient with elevated white count today of 13 K. due to abscess not resolving and patient completing p.o. antibiotics discussed case with surgery Dr. Johnson. She recommended placing the patient on vancomycin IV. He is admitted to the [facility] with plan on going to surgery this evening to surgically remove abscess. He is placed on NPO. <Rosa Grey, DO - Last Filed: 05/08/18 07:26> Lab Data Lab Results 05/03/18 05/03/18 Range/Units 13:05 13:05 WBC 13.4 H (4.5-11.0) X10^3/uL RBC 6.64 H (4.5-5.9) X10^6/uL Hgb 17.9 H (13.5-17.5) g/dL Hct 51.3 (41-53) % MCV 77.4 L (80-100) fL MCH 27.0 (26-34) PG MCHC 34.9 (30-36) % RDW 15.2 H (11.6-14.8) % Plt Count 184 (150-400) X10^3/uL Neut % (Auto) 82.4 H (50-75) % Lymph % (Auto) 11.4 L (25-40) % Cotton % (Auto) 5.1 (3-14) % Eos % (Auto) 0.4 L (2-4) % Baso % (Auto) 0.7 (0-2) % Neut # (Auto) 39967 H (9537-8569) /uL Sodium 142 (137-145) mmol/L Potassium 4.5 (3.4-5.1) mmol/L Chloride 107 (98-107) mmol/L Carbon Dioxide 25 (22-32) mmol/L BUN 13 (9-20) mg/dL Creatinine 0.90 (0.66-1.25) mg/dL Estimated GFR > 60.0 (>60) mL/min BUN/Creatinine Ratio 14.4 (6-22) Glucose 96 (70-100) mg/dL Calcium 9.5 (8.4-10.2) mg/dL Total Bilirubin 1.0 (0.2-1.3) mg/dL AST 28 (17-59) IU/L ALT 34 (21-72) IU/L Alkaline Phosphatase 68 (38-126) U/L Total Protein 7.6 (6.3-8.2) g/dL Albumin 4.2 (3.5-5.0) g/dL Globulin 3.4 (1.7-4.1) g/dL Albumin/Globulin Ratio 1.2 (1.0-2.8) Discharge Plan Departure Patient Disposition: Admitted As Inpatient Clinical Impression: Abscess of buttock, left Discharge Date/Time: 05/03/18 16:05 Interventions: ED Discharge Assessment Last Done: 05/03/18 15:48 Instructions: Anal Abscess, Oxycodone, Ciprofloxacin, Metronidazole Oral Admit Date/Time: 05/03/18 15:55 Admit Provider: Kaylin Johnson <Rosa Grey DO - Last Filed: 05/08/18 07:26> Cosign ED Attending Cosignature Attestation: I was immediately available in the department for consultation. Documentation has been reviewed. I agree with assessment and plan.
[2018-05-03] MEDS: IBUPROFEN 400 MG TABLET PO (12:38)
[2018-05-03 13:16] LABS: Add Manual Diff / Slide Review NO; Basophils Percent Auto 0.7 % (0-2); Eosinophils Percent Auto 0.4 % (2-4); Hematocrit 51.3 % (41-53); Hemoglobin 17.9 g/dL (13.5-17.5); Lymphocytes Percent Auto 11.4 % (25-40); Mean Corpuscular HGB Conc 34.9 % (30-36); Mean Corpuscular Volume 77.4 fL (80-100); Monocytes Percent Auto 5.1 % (3-14); Neutrophils Absolute Auto 11100 /uL (3000-5900); Neutrophils Percent Auto 82.4 % (50-75); Platelet Count 184 X10^3/uL (150-400); Red Blood Cell Count 6.64 X10^6/uL (4.5-5.9); Red Cell Distribution Width 15.2 % (11.6-14.8); White Blood Cell Count 13.4 X10^3/uL (4.5-11.0)
[2018-05-03] MEDS: HYDROMORPHONE 1 MG INJ 0.5 MG IV (13:21)
[2018-05-03 13:31] LABS: Alanine Aminotransferase 34 IU/L (21-72); Albumin 4.2 g/dL (3.5-5.0); Albumin Globulin Ratio 1.2 (1.0-2.8); Alkaline Phosphatase 68 U/L (38-126); Aspartate Aminotransferase 28 IU/L (17-59); BUN Creatinine Ratio 14.4 (6-22); Blood Urea Nitrogen 13 mg/dL (9-20); Calcium 9.5 mg/dL (8.4-10.2); Carbon Dioxide 25 mmol/L (22-32); Chloride 107 mmol/L (98-107); Estimated Glomerular Filt Rate > 60.0 mL/min (>60); Globulin 3.4 g/dL (1.7-4.1); Glucose 96 mg/dL (70-100); HEMOLYSIS < 15 (0-50); Potassium 4.5 mmol/L (3.4-5.1); Sodium 142 mmol/L (137-145); Total Protein 7.6 g/dL (6.3-8.2)
[2018-05-03] MEDS: SODIUM CHLORIDE 0.9% 1,000 ML 125 ML IV (14:22)
[2018-05-03] MEDS: VANCOMYCIN 1,000 MG/200 ML FROZ.PIGGY 200 MG IV (14:29)
[2018-05-03] MEDS: HYDROMORPHONE 2 MG INJ 1 MG IV (15:05)
--- NOTE | 2018-05-03 16:44 | PC.NURSE ---
Pt to AC from ER at 1620. VSS. alert and oriented. States pain tolerable. IVF per order. pt aware of NPO status for I&D this evening. moving freely. instructed to notify RN/YARD COORDINATOR prior to activity if feeling light headed or dizzy but has been observed ambulating steady in room. Oriented to room and plan of care. Encouraged call light for needs.
[2018-05-03] MEDS: LACTATED RINGERS 1,000 ML 42 ML IV ×2 (20:30→23:31)
--- NOTE | 2018-05-03 21:34 | SUR.HOLD ---
late entry: pt brought to opd. seen by dr kolb awaiting surgery. call radhika near by.
--- NOTE | 2018-05-03 21:46 | PM.HP.1 ---
History of Present Illness Date Patient Seen: 05/03/18 Time Patient Seen: 16:47 Chief complaint: LUMP ON BUTT Narrative: Mr. Duenas is a pleasant gentleman who is well known to me from a recent visit to our outpatient clinic. He was seen in the emergency room on April 16 complaining of an abscess on his buttock. At that time he reported that it was rupturing and draining when he was at work and it was terribly painful. He underwent incision and drainage in the emergency room, had the lesion cultured, and was started on Septra. He followed up with me in my office about 2 weeks later. At that time, the pain was significantly improved although there was still a lump palpable. He was still significantly tender and the exam was limited due to that tenderness. We talked about the fact that if this were to recur, he would most likely need drainage in the operating room. Unfortunately, the lesion recurred today bringing Mr. Duenas back to the emergency room. I was consulted for definitive management of this problem. Patient History Family & Social History Family History: Reviewed 05/03/18 by Kaylin Johnson MD Social History: household members significant other,friend(s) Safety & Behavioral: Feels Safe in Current Yes Environment Been Physically Hurt or No Threatened By a Person Suicidal Ideation Description None Suicide Plan Description No Plan Tobacco & Substance use: Tobacco type cigarettes,cannabis/marijuana Smoking Status Current every day smoker alcohol intake never Substance Use Type marijuana Meds Home Medications Medication Instructions Recorded Confirmed Type ibuprofen 1 dose PO PRN PRN 05/03/18 05/03/18 History Allergies Allergy/AdvReac Type Severity Reaction Status Date / Time Penicillins [PENICILLINS] Allergy Unknown Verified 05/03/18 10:23 Review of Systems Review of Systems All systems reviewed & are unremarkable except as noted in HPI and below Exam Vital Signs (past 8 hours): - 05/03/18 15:31 05/03/18 16:30 05/03/18 21:25 Temperature 97.1 F L 97.4 F L Pulse Rate 56 L 58 L 59 L Respiratory Rate 16 17 16 Blood Pressure 135/96 H 121/79 Blood Pressure [Left Arm] 133/79 Pulse Oximetry 96 100 97 Oxygen Delivery Method Room Air Narrative Exam Narrative: Thing gentleman in no obvious distress HEENT: NCAT, PERRLA, EOMI Lungs: upper airway noise but improved with coughing, no wheezing CV: RRR, no murmur Abd: soft, active bowel sounds. Ext: warm and well perfused Buttocks and perianal region- definite tenderness to palpation along the anterior edge of the left buttock. Patient is so tender as to not be able to cooperate with a full exam. A small 1 cm healing wound is noted with some minimal may drainage. Objective Labs Result Diagrams: 05/03/18 13:05 05/03/18 13:05 Labs: Laboratory Results - last 24 hr 05/03/18 05/03/18 13:05 13:05 WBC 13.4 H RBC 6.64 H Hgb 17.9 H Hct 51.3 MCV 77.4 L MCH 27.0 MCHC 34.9 RDW 15.2 H Plt Count 184 Neut % (Auto) 82.4 H Lymph % (Auto) 11.4 L Merrick % (Auto) 5.1 Eos % (Auto) 0.4 L Baso % (Auto) 0.7 Neut # (Auto) 48999 H Sodium 142 Potassium 4.5 Chloride 107 Carbon Dioxide 25 BUN 13 Creatinine 0.90 Estimated GFR > 60.0 BUN/Creatinine Ratio 14.4 Glucose 96 Calcium 9.5 Total Bilirubin 1.0 AST 28 ALT 34 Alkaline Phosphatase 68 Total Protein 7.6 Albumin 4.2 Globulin 3.4 Albumin/Globulin Ratio 1.2 Assessment & Plan Plan: Assessment/Plan Narrative: Recurrent abscess of the left perianal region and buttock. Last culture grow pansensitive Gram-positive species. I recommended incision, drainage, and exploration of this wound in the operating room. We will re-culture it at that time. We discussed the risks and benefits of that procedure and Cleaning has expressed a desire to complete it. For now, we will start vancomycin. Quality VTE Deep Vein Thrombosis/Pulmonary Embolism Present on Admission: No
--- NOTE | 2018-05-03 22:58 | SUR.OPER ---
Lithotomy on padded OR bed, head on pillow, arms secured on padded arm boards at <90 degrees abduction. Legs secured in padded yellow fins stirrups.
--- NOTE | 2018-05-03 23:10 | PM.OP.1 ---
Operative Date/Time/Diagnoses Date of procedure: 05/03/18 Time of procedure: 23:10 Pre-op diagnosis: Perianal abscess Post-op diagnosis: same Procedure & Clinicians Procedure: Incision and drainage with culture of perianal abscess Same procedure as scheduled: Yes Indications: Painful, enlarging, and draining perianal abscess Surgeon: Kaylin Johnson Click Yes if Unassisted: Yes Anesthesia Type: General (Kotlarczyk) Operative Notes Findings: 2 x 3 cm abscess cavity containing purulent and foul-smelling material. Closure Type: non-primary Specimen(s): other (Cultures for aerobic and anaerobic organisms) Estimated Blood Loss (mL): 5 Procedure in detail: After obtaining informed consent, the patient brought to the operating room placed in the supine position on the operating table. Following successful induction of general endotracheal anesthesia, appropriate padding of all bony prominences, and placement of appropriate monitors, the perianal region was prepped and draped in the standard surgical fashion. A time-out was held per SCOAP protocol. The incision was created directly over the healed opening in the lesion and carried down through the skin subcutaneous tissue. Breast deep. A lid material poured liberally from the opening. The cavity was cultured and then irrigated copiously with Betadine containing saline solution. The cavity was explored and did not track proximally or toward the anus. The wound was then infiltrated with a mixture of local anesthetics and packed with iodoform gauze. A dry dressing was applied. All sponge, needle, and instrument counts were correct at the conclusion of the case. The patient was allowed to wake from anesthesia without difficulty and taken to the postanesthesia care unit in good condition. Complications: none Condition: stable Disposition: PACU Plan for aftercare: 1. Stop vancomycin in exchange for broader spectrum antibiotic coverage 2. Return to [facility] for continued convalescence and supportive care.
--- NOTE | 2018-05-03 23:14 | P.OP_ITS ---
Operative Date/Time/Diagnoses Date of procedure: 05/03/18 Time of procedure: 23:10 Pre-op diagnosis: Perianal abscess Post-op diagnosis: same Procedure & Clinicians Procedure: Incision and drainage with culture of perianal abscess Same procedure as scheduled: Yes Indications: Painful, enlarging, and draining perianal abscess Surgeon: Kaylin Johnson Click Yes if Unassisted: Yes Anesthesia Type: General (Kotlarczyk) Operative Notes Findings: 2 x 3 cm abscess cavity containing purulent and foul-smelling material. Closure Type: non-primary Specimen(s): other (Cultures for aerobic and anaerobic organisms) Estimated Blood Loss (mL): 5 Procedure in detail: After obtaining informed consent, the patient brought to the operating room placed in the supine position on the operating table. Following successful induction of general endotracheal anesthesia, appropriate padding of all bony prominences, and placement of appropriate monitors, the perianal region was prepped and draped in the standard surgical fashion. A time- out was held per SCOAP protocol. The incision was created directly over the healed opening in the lesion and carried down through the skin subcutaneous tissue. Breast deep. A lid material poured liberally from the opening. The cavity was cultured and then irrigated copiously with Betadine containing saline solution. The cavity was explored and did not track proximally or toward the anus. The wound was then infiltrated with a mixture of local anesthetics and packed with iodoform gauze. A dry dressing was applied. All sponge, needle, and instrument counts were correct at the conclusion of the case. The patient was allowed to wake from anesthesia without difficulty and taken to the postanesthesia care unit in good condition. Complications: none Condition: stable Disposition: PACU Plan for aftercare: 1. Stop vancomycin in exchange for broader spectrum antibiotic coverage 2. Return to [facility] for continued convalescence and supportive care.
[2018-05-03] MEDS: BUPIVACAINE 0.5% W/ EPI (PF) VIAL 30 ML INJ (23:34)
--- NOTE | 2018-05-03 23:34 | SUR.PHASEI ---
Pt arrived with airway, low bp, bp treated with fluids, now 105 systolic. remains on room air, easily arousable.
--- NOTE | 2018-05-03 23:39 | SUR.PHASEI ---
report to sherry tsai.
[2018-05-04] VITALS (7 sets, daily range): BP systolic 108–148; BP diastolic 68–93; PULSE 56–80; RESP 16–18; TEMP 36.3–36.9; O2SAT 94–98
--- NOTE | 2018-05-04 00:18 | SUR.PHASEI ---
late entry: stable pacu stay. no pain no nausea, transfered up to room. left in stable condition.
[2018-05-04] MEDS: metroNIDAZOLE 500 MG/100 ML PIGGYBACK 100 MG IV ×3 (00:39→12:14)
[2018-05-04] MEDS: CIPROFLOXACIN 400 MG/200 ML PIGGYBACK 200 MG IV ×2 (01:51→14:19)
[2018-05-04] MEDS: OXYCODONE/ACETAMINOPHEN 5/325 TABLET 1 TAB PO ×3 (07:29→15:54)
--- NOTE | 2018-05-04 07:29 | PC.NURSE ---
0000: pt arrived post op. a&Ox3. sating 94%ra. able to make needs known. IVF. pt ate some crackers and apple juice,denied n/v. pt denied pain. pt comfortable and slept all night. kavya saunders.
[2018-05-04] MEDS: HYDROMORPHONE 1 MG INJ IV (07:40)
[2018-05-04] MEDS: NICOTINE 21 MG PATCH TOP (07:55)
[2018-05-04] MEDS: IBUPROFEN 600 MG TABLET PO ×2 (09:07→15:54)
--- NOTE | 2018-05-04 11:03 | PC.NURSE ---
Found Gómez pacing room at 0730 and loudly proclaiming that he Wants to f---ing leave now. I've got bills to pay and lots of work to do. The [place] are closing in on me! He then admitted he wanted to have a smoke and that he was in pain 14/06!. Given IV Dilaudid, PO Percocet, and then Nicoderm patch. After breakfast he was given Ibuprofen. He nows appears calmer, though he is constantly on his phone discussing topics such as she has a restraining order on her. His buttock dressing was saturated with serosang. drng. New 4x4 gauzed and 2 ABD pads placed. (Wound packing not removed.) VSS. Girlfriend Ree at bedside seems supportive and states she Does not want him to go AMA.
[2018-05-04] MEDS: DEXTROSE 5%-0.45% NS 1,000 ML 125 ML IV ×2 (11:32)
--- NOTE | 2018-05-04 12:22 | CM.DANOTE ---
Discharge Planning/Care Management CM Discharge Assessment Start: 05/04/18 12:18 Freq: Status: Active Protocol: Document 05/04/18 12:20 (Rec: 05/04/18 12:22 [id number]) Discharge Planning Assessment Assigned Accounts Payable Accountant BORIS De Guzman Advance Directives? No Advance Directives on File No History Provided By Patient Significant Other Medical Record Has Patient been admitted in last 30 No days? Prior Living Arrangements Apartment/Condo Household Members significant other friend(s) Type of transporation used prior to Drives own vehicle admit Independent with ADL's Yes Is patient alert and oriented? Yes Caregiver for Another Yes: Children Discharge Plan Home Referrals Initiated None needed Whiteboard Updated in Patient Room with Yes name and ext. # of Accounts Payable Accountant Review Status In Process Please Provide Date Initial DC 05/04/18 Assessment Was Performed Next Review Type Continued Stay Review Met with patient and girlfriend/Ree? Patient was dressed and pacing room. Notified patient of CM team role and patient stated unless SW had discharge paperwork he was not talking to SW. SW was able to ease patient who stated that everyone keeps asking if I do drugs, i hate needles. SW was uncertain where those comments stemmed from. Reiterated to patient SW was there to ensure safe discharge plan and address any needs or concerns. Patient calmed down and stated he lives with his girlfriend and two children. Patient works at the [employer] in . Patient wishes to discharge home [place] due to scheduled work shifts. Patient does not have any discharge needs or concerns at this time. Patient currently on IV abx and it is unknown if patient will discharge on PO or IV abx? Patient reports he is opposed any IV abx and just wishes to leave. Plan: Patient to discharge home with supportive family. CM to follow if patient requires IV abx at discharge.
--- NOTE | 2018-05-04 18:01 | PM.DS.1 ---
History of Present Illness Date Patient Seen: 05/04/18 Time Patient Seen: 18:01 Chief complaint: LUMP ON BUTT Narrative: 37-year-old male who presented to the emergency department yesterday with increasing pain and drainage from perianal area. Examination and evaluation were consistent with abscess. He has had recurrent abscesses of this nature in the past. He denies any significant fever or chills. He had been tolerating a diet without any issues. No abdominal pain. No difficulties with bowel or bladder function. Discharge Providers Date of admission: 05/03/18 15:55 Consults: 05/04/18 00:06 Consult to Discharge Planning Routine Comment: Discharge provider: Mo Mercado MD Summary Discharge Diagnosis: 1. Left perianal abscess 2. 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 Because of his significant pain and discomfort he was taken to the operating room where examination under anesthesia was performed. He was found to have a perianal abscess which was incised and drained. Packing was placed. Postoperatively he was admitted to the regular surgical floor for observation more he remained afebrile and hemodynamically stable. He had spontaneous return of normal bowel bladder function. He is ambulating without difficulty. Tolerating a regular diet. Pain is well controlled with oral Percocet. Because of his overall stable condition following improvement after drainage he is discharged home. He will complete a 1 week course of ciprofloxacin and Flagyl. Continue Percocet as needed for pain. He will remove the packing tomorrow and shower as instructed. He has a significant other who will change the packing for him. In fact, she has done this for him in the past at previous episodes of abscesses. He is quite comfortable with care in that regard. He has been instructed to return or call sooner if he has any progressive pain, fever, chills, inability to tolerate a diet, or any other concerns. All questions were answered to his satisfaction, and he voiced understanding. Status at Discharge Cognitive/behavioral status at discharge: Alert oriented x3 Functional status at discharge: independent ambulation Overall status at discharge: patient is back to baseline Time Spent with Patient Less than 30 minutes Exam Vital Signs (past 8 hours): - 05/04/18 15:46 Temperature 97.4 F L Pulse Rate 63 Respiratory Rate 18 Blood Pressure 137/93 H Pulse Oximetry 94 Oxygen Delivery Method Room Air Oxygen Flow Rate 0 Narrative Exam Narrative: Well-nourished well-developed thin male in no acute distress. Alert oriented x3 Normal gait with ambulation Regular rate and rhythm Abdomen soft, nondistended Abscess cavity is clean. Minimal induration in the left buttock. No erythema. Packing is in place. No significant purulent drainage. Extremities show no clubbing, cyanosis, or edema Objective Labs Result Diagrams: 05/03/18 13:05 05/03/18 13:05 Labs: Final culture results are still pending. G stain showed gram-positive cocci and gram negative rods. Few yeast. Discharge Plan Discharge Plan Patient Disposition: Home Discharge Med Rec/Prescriptions Prescriptions: New oxycodone-acetaminophen 5-325 mg Tablet 1 tab PO Q4HR PRN (Reason: Pain, Moderate (4-6)) Qty: 30 RF: 0 ciprofloxacin HCl 750 mg tablet 750 mg PO BID Qty: 14 RF: 0 metronidazole [Flagyl] 250 mg tablet 250 mg PO TID Qty: 21 RF: 0 docusate sodium 100 mg Capsule 100 mg PO BID Qty: 14 RF: 1 Continue ibuprofen 200 mg Tablet 1 dose PO PRN PRN (Reason: Pain, Moderate) RF: 0 Follow up/Referrals: Kaylin Johnson MD [Physician] - 05/08/18 12:00 am (Please call office on MondayMay 07 2018 to schedule exact appointment time) Provider Discharge Instructions Diet: Diet as Tolerated Activity: As tolerated Do not drive while taking opioid pain medications Other treatments: May shower May use Sitz bath as as needed after bowel function Skin/Wound/Dressing Care Report to your healthcare provider any signs of infection, such as:: chills, fever and increased pain Other wound treatment: Removed current packing while showering on May 05, 2018 Replace packing on May 05, 2018 as instructed Removed packing and place new packing at least once daily beginning May 05, 2018 as above until directed otherwise Discharge Data Attending Provider: Kaylin Johnson Admit Date/Time: 05/03/18 15:55 Quality VTE Deep Vein Thrombosis/Pulmonary Embolism Present on Admission: No
== END 2018-05-04 18:30 | disposition home or self-care (01) ==
LOC: ED 13:32 → AC 05-04 07:28
PROVIDERS: Admitting Provider Surgery; Emergency Provider Nurse Practitioner Family; Visit Provider Surgery
PROC: (CPT 46050; principal; 2018-05-03 18:30)
DX: K61.2 Anorectal abscess (principal); F17.210 Nicotine dependence, cigarettes, uncomplicated
CPT/HCPCS: 46050; 36591; 80053; 85025; 87070; 87075; 87077; 87147; 87186; 87205; 96365; 96375; 96376; 99283; 99285; 99406; G0378; J0744; J1170; J3010; J3370

== ENCOUNTER 2019-04-29 20:04 | Emergency (ER) | payer SELFPAY ==
[2018-05-03 16:06] VITALS: BMI 20.7
[2019-04-29 20:11] VITALS: BP 159/104; PULSE 80; RESP 16; TEMP 36.7; O2SAT 97; BMI 22.0
[2019-04-29 20:29] LABS: RBC Urine None Seen (0-5/HPF)
--- NOTE | 2019-04-29 20:35 | ED.MALEGU ---
HPI - Male Genitourinary General Chief complaint: Urogenital-Male Stated complaint: NOT PEEING FOR TWO DAYS BACK PAIN Time Seen by Provider: 04/29/19 20:18 Source: patient Mode of arrival: ambulatory Limitations: no limitations History of Present Illness HPI Narrative: 38-year-old male daily smoker with history of kidney stones presents with bilateral lumbar pain and difficulty with urination for the past few days. He states that not only dizzy have some burning and discomfort with urination but that it is hard for him to start his dream. He denies fever or chills but is a bit nauseated. He denies any penile discharge or hematuria. He denies any new sexual partners. He denies any abdominal pain or change in bowel habits. His discomfort is worse with motion and improves with rest. He denies any radiation of the pain. He denies any testicular swelling or pain Onset (ago): day(s) Duration: constant Location: right flank and left flank Severity: mild Quality: aching Relieving factors: rest Exacerbating factors: movement Associated symptoms: Reports dysuria Related Data Sexually active: Yes Home Medications Medication Instructions Recorded Confirmed ibuprofen 1 dose PO PRN PRN 05/03/18 05/03/18 Previous Rx's Medication Instructions Recorded ciprofloxacin HCl 750 mg PO BID #14 tab 05/04/18 metronidazole [Flagyl] 250 mg PO TID #21 tab 05/04/18 oxycodone-acetaminophen 1 tab PO Q4HR PRN #30 tab 05/04/18 cephalexin [Keflex] 500 mg PO QID 10 Days #40 cap 04/29/19 ketorolac 10 mg PO Q6H PRN #14 tab 04/29/19 Allergies Allergy/AdvReac Type Severity Reaction Status Date / Time Penicillins [PENICILLINS] Allergy Unknown Verified 05/03/18 10:23 Review of Systems Constitutional Constitutional: Denies chills, Denies fatigue, Denies fever(s), Denies frequent falls, Denies lethargy and Denies weakness Eyes Eyes: Denies change in vision, Denies eye discharge, Denies irritation and Denies loss of vision ENT Ears, Nose, Mouth, and Throat: Denies change in voice, Denies dizziness, Denies neck pain, Denies sore throat and Denies throat swelling Cardiovascular Cardiovascular: Denies chest pain, Denies irregular heart rhythm, Denies lightheadedness, Denies palpitations, Denies dyspnea, Denies dyspnea on exertion and Denies orthopnea Respiratory Respiratory: Denies cough, Denies dyspnea, Denies dyspnea on exertion and Denies wheezing Gastrointestinal Gastrointestinal: Denies abdominal pain, Denies change in bowel habits, Denies diarrhea, Denies nausea and Denies vomiting Genitourinary Genitourinary: Denies hematuria, Reports dysuria, Reports flank pain, Denies urinary incontinence and Denies urinary urgency Musculoskeletal Musculoskeletal: Denies back pain, Denies muscle weakness, Denies neck pain, Denies numbness and Denies tingling Integumentary/Breasts Skin/Breast: Denies pruritus, Denies erythema, Denies rash and Denies wounds Neurologic Neurologic: Denies behavioral changes, Denies confusion, Denies dizziness, Denies frequent falls, Denies loss of vision, Denies numbness, Denies tingling and Denies weakness Psychiatric Psychiatric: Denies anxiety, Denies behavioral changes, Denies confusion, Denies depression, Denies homicidal ideation and Denies suicidal ideation Endocrine Endocrine: Denies fatigue, Denies flushing and Denies palpitations Hematologic/Lymphatic Hematologic/Lymphatic: Denies easy bruising Allergic/Immunologic Allergic/Immunologic: Denies urticaria, Denies throat swelling and Denies wheezing PFSH Family History Grandmother Hypertension Social History marital status: unmarried,living together household members: significant other and friend(s) Smoking Status: Current every day smoker alcohol intake: never substance use type: marijuana Family History Grandmother Hypertension Social History marital status: unmarried,living together household members: significant other and friend(s) Smoking Status: Current every day smoker alcohol intake: never substance use type: marijuana Exam Narrative Exam Narrative: GENERAL: [38] year old patient appears stated age. Well-nourished, well-developed patient, in mild distress. HEAD: Atraumatic. Normocephalic. EYES: Pupils equal round and reactive. Extraocular motions intact. No scleral icterus. No injection or drainage. ENT: Nose without bleeding, purulent drainage. Throat without erythema, tonsillar hypertrophy or exudate. Airway patent. NECK: Trachea midline. Non tender CARDIOVASCULAR: Regular rate and rhythm without murmurs, gallops, or rubs. RESPIRATORY: Clear to auscultation. Breath sounds equal bilaterally. No wheezes, rales, or rhonchi. GASTROINTESTINAL: Abdomen soft, non-tender, nondistended. EXTREMITIES: No edema or joint tenderness. BACK: Bilateral flank tenderness. No saddle anesthesia. No radiation of pain. No straight leg raising abnormalities. Bilateral patellar reflexes 2+. No numbness, tingling or weakness NEURO: AOx3. SKIN: No rash or erythema of visible areas Initial Vital Signs Initial Vital Signs: Vital Signs Temperature 98.0 F 04/29/19 20:11 Pulse Rate 80 04/29/19 20:11 Respiratory Rate 16 04/29/19 20:11 Blood Pressure 159/104 H 04/29/19 20:11 Pulse Oximetry 97 04/29/19 20:11 Course Orders Ordered: ED Orders 04/29/19 20:15 Urine Microscopic Stat Discontinued Medications Hydrocodone Bitart/Acetaminophen (Vicodin Prepack) 1 bottle MISC SEEINSTR ONE Stop: 04/29/19 21:03 Last Admin: 04/29/19 21:19 Dose: 1 bottle Documented by: KIKO Cefazolin Sodium (Keflex 250 Mg Prepack) 1 bottle MISC SEEINSTR ONE Stop: 04/29/19 21:03 Last Admin: 04/29/19 21:19 Dose: 500 mg Documented by: KIKO Ketorolac Tromethamine (Toradol) 15 mg IM NOW ONE Stop: 04/29/19 21:03 Last Admin: 04/29/19 21:19 Dose: 15 mg Documented by: KIKO Vital Signs Vital signs: Vital Signs - 8 hr 04/29/19 20:11 04/29/19 21:08 Temperature 98.0 F Pulse Rate 80 74 Respiratory Rate 16 16 Blood Pressure 159/104 H Blood Pressure [Left Arm] 148/97 H Pulse Oximetry 97 97 MDM - Male Genitourinary Lab Data Labs: Lab Results 04/29/19 Range/Units 20:15 Urine RBC None seen (0-5/HPF) Urine WBC 1-5/hpf (0-5/HPF) Ur Squamous Epith Cells 10-30 /hpf H (0-5/HPF) Amorphous Sediment 1+ Urine Bacteria Moderate (10-30) H (None) Urine Mucus 1+ H (Negative) Ur Culture Indicated? Cult not indicated Urine Dip Bedside Urine Glucose Negative Bedside Urine Bilirubin - Negative Bedside Urine Ketone - Negative Urine Specific [place] 1.015 Bedside Urine Occult Blood - Negative Bedside Urine pH 8.0 Bedside Urine Protein +/- 15 Bedside Urine Urobilinogen +/- 1mg Bedside Urine Nitrite - Negative Bedside Urine Leukocytes ++ 125 Esterase MDM Narrative Medical decision making narrative: Multiple etiologies for patient's symptoms considered including: [Urinary tract infection versus kidney stone versus musculoskeletal versus other] Patient's symptoms improved or duration of stay with above-stated therapies. Findings and discharge diagnosis discussed with patient/family followed by verbalization of understanding Return precautions discussed with patient/family whom verbalize understanding. Discharge Plan Departure Patient Disposition: Home Clinical Impression: Acute pyelonephritis Discharge Date/Time: 04/29/19 21:46 Instructions: DI for Kidney Infection Activity Restrictions/Additional Instructions: *You have been diagnosed with [acute pyelonephritis] *What to do: *Take medications as directed *Follow up with your primary care provider in 2-3 days, call for an appointment. Let them know you were seen in the Emergency Department and that we ask that you be seen in follow up *Return to ER if you should have any new, worsening or concerning symptoms, such as [fever, shaking chills, vomiting or other bothersome symptoms] Prescriptions: New ketorolac 10 mg tablet 10 mg PO Q6H PRN (Reason: pain) Qty: 14 RF: 0 cephalexin [Keflex] 500 mg capsule 500 mg PO QID 10 Days Qty: 40 RF: 0 No Action ibuprofen 200 mg Tablet 1 dose PO PRN PRN (Reason: Pain, Moderate) RF: 0 oxycodone-acetaminophen 5-325 mg Tablet 1 tab PO Q4HR PRN (Reason: Pain, Moderate (4-6)) Qty: 30 RF: 0 ciprofloxacin HCl 750 mg tablet 750 mg PO BID Qty: 14 RF: 0 metronidazole [Flagyl] 250 mg tablet 250 mg PO TID Qty: 21 RF: 0 Referrals: [facility] [Outside]
[2019-04-29 20:37] LABS: Squamous Epithelial Cell Urine 10-30 /HPF (0-5/HPF); WBC Urine 1-5/HPF (0-5/HPF)
[2019-04-29 20:38] LABS: Amorphous Sediment Urine 1+; Bacteria Urine Moderate (10-30); Culture Indicated Urine Cult Not Indicated; Mucus Urine 1+ (Negative)
[2019-04-29 21:08] VITALS: BP 148/97; PULSE 74; RESP 16; O2SAT 97
[2019-04-29] MEDS: cephALEXin 250 MG PREPACK 1 BOTTLE MISC (21:19)
[2019-04-29] MEDS: KETOROLAC 60 MG/2 ML VIAL 15 MG IM (21:19)
[2019-04-29] MEDS: HYDROCODONE/ACET 5/325 PREPACK 1 BOTTLE MISC (21:19)
== END 2019-04-29 21:46 | disposition home or self-care (01) ==
PROVIDERS: Emergency Provider Emergency Medicine
DX: N10 Acute pyelonephritis (principal)
CPT/HCPCS: 51798; 81003; 81015; 96372; 99283; J1885